=== PATIENT | male | born 1945 | race Two or more races ===

== ENCOUNTER → 2017-07-19 | Outpatient (CLI) | payer MEDICARE | END | disposition home or self-care (01) | LOC: PETCFH 08:01 | PROVIDERS: ATTEND Internal Medicine Critical Care Medicine | DX: R94.2 Abnormal results of pulmonary function studies (principal); R91.1 Solitary pulmonary nodule; K25.9 Gastric ulcer, unspecified as acute or chronic, without hemorrhage or perforation; K30 Functional dyspepsia | CPT/HCPCS: 78815; A9552 ==